=== PATIENT | male | born 2000 ===

== ENCOUNTER 2025-01-05 | Outpatient (REF) | payer OTHER, SELFPAY ==
--- NOTE | ~2025-01-05 | MR_ITS ---
CLINICAL HISTORY: INSTABILITY; FOOTBALL INJURY COUPLE WEEKS AGO MR arthrogram of the left shoulder. No prior MR. Findings: No acute fracture or bone contusion is seen. There is a probable old mild Hill-Sachs lesion of the humeral head. No rotator cuff tear is identified. The biceps tendon is intact. Glenohumeral alignment is normal. There is an ill-defined tear of the anterior inferior labrum. There is prominent widening of the acromioclavicular joint consistent with a prior separation. There is no adjacent marrow or soft tissue edema. There is a possible partial tear of the coracoclavicular ligaments without superior displacement of the clavicle. Impression: Probable old mild Hill-Sachs lesion of the humeral head suggesting previous anterior glenohumeral dislocation. Ill-defined tear anterior inferior labrum. Prominent widening of the acromioclavicular joint with a possible partial tear of the coracoclavicular ligaments. This document has been electronically signed by: Александр Velasco MD on 01/05/2025 17:09:07
--- NOTE | ~2025-01-05 | FL_ITS ---
RF ARTHROGRAM SHOULDER LEFT HISTORY: Intra-articular gadolinium injection for MRI. Instability, football injury. TECHNIQUE: Following full and informed consent, the patient was placed in the supine position on the fluoroscopy table. Following this, the left shoulder joint was localized utilizing fluoroscopic guidance. The area was prepped and draped in a sterile manner and 1% Lidocaine anesthesia was applied to the skin and subcutaneous tissue for an anterolateral approach to the shoulder joint. Following this, a 22-gauge needle was advanced into the shoulder joint space utilizing fluoroscopic guidance. Following this, approximately 5 mL of a mixture consisting of dilute gadolinium in normal saline (0.1 mL Dotarem diluted with 15 mL normal saline), with 5 mL of [id number] contrast material was injected into the joint space under fluoroscopic control. Following this, the needle was removed. The patient tolerated the procedure well and there were no immediate complications. FLUOROSCOPY TIME: 27 seconds. Total number of fluoroscopic images archived and saved in the patients permanent medical record: 1 DAP: 264.5 [id number] FL/FL arthrogram shoulder LT IMPRESSION: 1. Successful intra-articular injection of dilute gadolinium into the left shoulder joint. The patient will undergo subsequent MRI. Electronically signed by: Brian Carr MD 01/05/2025 03:20 PM EDT
[2025-01-05] MEDS: iohexoL 300 MG/ML 50 ML INFUS..BTL 10 ML INTRAARTIC (14:33)
[2025-01-05] MEDS: Lidocaine HCl 1 % MPF 30 ML VIAL INTRAARTIC (14:35)
[2025-01-05] MEDS: gadobutroL 2 ML VIAL IVPUSH (14:57)
--- OUTSIDE RECORDS SUMMARY | 2025-03-10 14:41 | XMS_ITS | Clinical Summary ---
Author Organization [facility] Address [address] [place] [address] Care Team Providers Care Utilization Manager Name Role Phone Unavailable Primary Care Provider Unavailabl e Social History Tobacco Use Types Packs/Day Years Used Date Smoking Tobacco: Never Sex and Gender Information Value Date Recorded Sex Assigned at Male 12/05/2023 2:22 PM CDT Legal Sex Male 2:22 PM CDT Gender Identity Male 12/05/2023 2:22 PM CDT Sexual Orientation Not on file Last Filed Vital Signs Vital Sign Reading Time Taken Comments Blood Pressure 95/50 10/24/2022 3:26 PM [facility] [employer] Pulse 79 10/24/2022 3:26 PM [employer] Temperature 36.6 C (97.8 F) 10/24/2022 3:26 PM [employer] Respiratory Rate 24 10/24/2022 3:26 PM [employer] Oxygen Saturation 99% 10/24/2022 3:26 PM [employer] Inhaled Oxygen Concentration - - Weight 95.5 kg (210 lb 7 oz) 10/22/2022 1:24 PM [employer] Height 177.8 cm (5' 10 ) 10/22/2022 1:24 PM [employer] Body Mass Index 30.19 10/22/2022 1:24 PM [employer] Plan of Treatment Health Maintenance Due Date Last Done Comments Annual Physical 2005 HPV Vaccines (3 - Male 2-dos e series) 01/15/2014 09/28/2013, 07/18/2013 Varicella Vaccines (1 of 2 - 13+ 2-dose series) 2015 Hepatitis B Vaccines (1 of 3 - 19+ 3-dose series) 2021 DTaP/Tdap/Td Vaccines (2 - T d or Tdap) 07/18/2023 07/18/2013 Influenza Vaccine (Season Ended) 2025 07/18/2013 Respiratory Syncytial Virus (RSV) Adult Series (1 - 1-dose 75+ series) 2077 Meningococcal Vaccine Aged Out 07/18/2013 No louie marquise eligible based on patient's age to complete this topic HIB Vaccines Aged Out No longer eligi ble based on patient's age to complete this topic Hepatitis A Vaccines Aged Out No long er eligible based on patient's age to complete this topic IPV Vaccines Aged Out No longer eligi ble based on patient's age to complete this topic Pneumococcal Vaccine: Pediatrics (0 to 5 Years) and At-Risk Patients (6 to 64 Years) Aged Out No longer eligible b ased on patient's age to complete this topic Rotavirus Vaccines Aged Out No longer eligible based on patient's age to complete this topic
== END 2025-01-05 00:01 | disposition home or self-care (01) ==
LOC: HO.XRAY
PROVIDERS: Visit Provider Student in an Organized Health Care Education/Training Program
DX: M25.312 Other instability, left shoulder (principal)
CPT/HCPCS: 23350; 73040; 73222; A9585; J2003; Q9967

== ENCOUNTER → 2025-01-05 14:00 | Outpatient (BNV) | payer OTHER, SELFPAY | PROVIDERS: Visit Provider Radiology Diagnostic Radiology | DX: M25.512 Pain in left shoulder (principal) | CPT/HCPCS: 23350; 73040; 73222 ==